=== PATIENT | female | born 1980 | race Caucasian/White ===

== ENCOUNTER → 2018-01-23 | Outpatient (REF) | payer OTHER ==
[2018-01-23 14:21] LABS: FERRITIN 5 NG/ML (8-252); IRON (FE) 22 UG/DL (50-170); PERCENT SATURATION 4.6 % (13.2-45.0); TOTAL IRON BINDING CAPACITY 482 UG/DL (250-450)
== END ==
LOC: M LAB REF 13:23
DX: D50.9 Iron deficiency anemia, unspecified (principal)

== ENCOUNTER → 2018-04-01 | Outpatient (REF) | payer OTHER ==
[2018-04-01 13:21] LABS: FERRITIN 29 NG/ML (8-252); IRON (FE) 60 UG/DL (50-170); PERCENT SATURATION 14.8 % (13.2-45.0); TOTAL IRON BINDING CAPACITY 405 UG/DL (250-450)
== END ==
LOC: M LAB REF 11:43
DX: K91.2 Postsurgical malabsorption, not elsewhere classified (principal); D50.9 Iron deficiency anemia, unspecified
CPT/HCPCS: 83550

== ENCOUNTER → 2018-05-27 | Outpatient (REF) | payer OTHER ==
[2018-05-27 14:54] LABS: FERRITIN 9 NG/ML (8-252); IRON (FE) 66 UG/DL (50-170); PERCENT SATURATION 15.8 % (13.2-45.0); TOTAL IRON BINDING CAPACITY 417 UG/DL (250-450)
== END ==
LOC: M LAB REF 13:43
DX: K91.2 Postsurgical malabsorption, not elsewhere classified (principal); D50.9 Iron deficiency anemia, unspecified

== ENCOUNTER → 2018-09-16 | Outpatient (CLI) | payer OTHER ==
[~2018-09-16] MED LIST: BARIUM SULFATE 700 MG TABLET (E-Z-DISK) As Ordered; E-Z-GAS II EFFERVESCENT PACKET (SODIUM BICARB./CITRIC ACID/SIMETHICONE) As Ordered; E-Z-HD 98% w/w 340GM SUSP BTL As Ordered; E-Z-PAQUE 96% w/w SUSP 176GM BTL As Ordered
== END ==
LOC: M RAD 10:24
DX: K21.9 Gastro-esophageal reflux disease without esophagitis (principal); Z98.84 Bariatric surgery status
CPT/HCPCS: 74241

== ENCOUNTER → 2019-02-16 | Outpatient (CLI) | payer OTHER ==
[~2019-02-16] MED LIST changes: +ADDE10CA3 PO; +AMBI10TA PO; +B-12100011 SL; -BARIUM SULFATE 700 MG TABLET (E-Z-DISK) As Ordered; +BIOT2500 PO; -E-Z-GAS II EFFERVESCENT PACKET (SODIUM BICARB./CITRIC ACID/SIMETHICONE) As Ordered; -E-Z-HD 98% w/w 340GM SUSP BTL As Ordered; -E-Z-PAQUE 96% w/w SUSP 176GM BTL As Ordered; +MUCI600T31 PO; +OMEP20TA9 PO; +PROZ20CA11 PO; +PROZ40CA PO; +TESS100C PO
--- NOTE | 2019-02-16 16:48 | REP ---
Lumbar spine six views: There are no comparisons. Vertebral body heights, interspacing alignment are normal. There is mild osteoarthritis in the posterior facets and L5 S1 bilaterally. The facets are otherwise unremarkable. The pedicles and sacroiliac articulations are unremarkable. There is no spondylolysis or spondylolisthesis. There are bilateral pelvic tubal ligation clips. Impression: L5 S1 facet osteoarthritis bilaterally. Otherwise, negative plain film study of the lumbar spine. Electronically Signed by Lawrence Caldwell MD 02/16/2019 04:40 P
== END ==
LOC: M LRY 16:08
PROVIDERS: ATTEND Nurse Practitioner Family
DX: M51.37 Other intervertebral disc degeneration, lumbosacral region (principal)
CPT/HCPCS: 72110; J1885